=== PATIENT | female | born 1960 | race African-American/Black ===

== ENCOUNTER 2017-01-20 15:03 | Emergency (ER) | payer MEDICAID ==
[~2017-01-20] VITALS: Ht 167.6 cm; Wt 109.8 kg
[~2017-01-20 15:03] MED LIST: ACETAMINOPHEN-1 EAC1 PO; ALBUTEROL SULF8.5 GM INH; AMBIEN10 MG PO; AZITHROMYCIN250 MG PO; BENAZEPRIL HCL10 MG PO; CIPROFLOXACIN500 M2 ORAL; DEBROX15 M1 LEFT EAR; METOPROLOL SUCC25 MG PO; METRONIDAZOLE500 MG ORAL; NITROGLYCERIN0.4 MG SL; TRAMADOL HCL50 MG ORAL; VALIUM10 MG PO; VALIUM5 MG PO; ZANTAC150 MG PO
[2017-01-20] MEDS ORDERED: Albuterol ud Inhalation HHN ONE (15:30)
[2017-01-20] MEDS ORDERED: Ipratropium 0.02% Inh Soln 2.5ml UD HHN ONE (15:30)
[2017-01-20 15:34] VITALS: BP 109/74
[2017-01-20] MEDS ORDERED: ZITHROMAX250 MG ORAL (16:27)
[2017-01-20] MEDS ORDERED: PREDNISONE20 MG ORAL (16:27)
[2017-01-20] MEDS ORDERED: IBUPROFEN600 MG ORAL (16:27)
[2017-01-20 16:29] VITALS: BP 109/74
--- NOTE | 2017-01-20 19:20 | Emergency Room Report ---
History of Present Illness General Chief Complaint: Sore Throat Source: Patient, Medical Record Present Illness HPI The patient is a 56-year-old female with a history of asthma presenting for sore throat, cough, and fevers for the past week. The patient states that she was seen at an urgent care yesterday and was given IM steroids which has not helped. She states that throat swab was not done. She states that she has a history of recurrent tonsillitis and this feels the same. Pain is described as a 10 out of 10 dull ache to the back of the throat and does not radiate. Pain worse with swallowing. She describes cough as dry. She denies any other symptoms including shortness of breath, chest pain, nausea, vomiting, abdominal pain, rash Allergies: Coded Allergies: ACETAMINOPHEN (Verified Allergy, Mild, nausea, 07/24/12) vomit HYDROCODONE BIT (Verified Allergy, Mild, nausea, 07/24/12) vomit Patient History Past Medical History: see triage record Pertinent Family History: none Last Menstrual Period: menopause Now: No : 3 Para: 1 Reviewed Nursing Documentation: PMH: Agreed, PSxH: Agreed Nursing Documentation-PMH Past Medical History: No History, Except For Hx Cardiac Problems: Yes - CAD Hx Hypertension: Yes Hx Pacemaker: No Hx Asthma: No - BRONCHITIS Hx COPD: No Hx Diabetes: Yes Hx Cancer: No Hx Gastrointestinal Problems: Yes - GERD Hx Dialysis: No Hx Neurological Problems: Yes - INSOMNIA Hx Cerebrovascular Accident: Yes Hx Seizures: No Review of Systems All Other Systems: negative except mentioned in HPI Physical Exam Vital Signs Date Time Temp Pulse Resp B/P Pulse Ox O2 Delivery O2 Flow Rate FiO2 01/20/17 15:07 97.9 116 16 109/74 96 Room Air Sp02 EP Interpretation: reviewed, normal General Appearance: no apparent distress, alert, GCS 15, non-toxic Head: normocephalic, atraumatic Eyes: bilateral eye PERRL, bilateral eye normal inspection ENT: hearing grossly normal, no angioedema, normal voice, TMs + canals normal, uvula midline, tonsillar swelling, pharyngeal erythema Neck: full range of motion, supple/symm/no masses Respiratory: decreased breath sounds - diffuse, wheezing - diffuse Cardiovascular #1: no edema, no murmur, no rub Musculoskeletal: back normal, gait/station normal, normal range of motion, non- tender Neurologic: alert, oriented x3, responsive, motor strength/tone normal, sensory intact, speech normal Psychiatric: judgement/insight normal, memory normal, mood/affect normal, no suicidal/homicidal ideation Skin: normal color, no rash, warm/dry, well hydrated Lymphatic: adenopathy - cervical Medical Decision Making PA Attestation Dr. Faulkner is my supervising physician. Patient management was discussed with my supervising physician Diagnostic Impression: Primary Impression: Pharyngitis, acute Qualified Codes: J02.9 - Acute pharyngitis, unspecified ER Course The patient is a 56-year-old female with a history of asthma presenting for sore throat, cough, and fevers Differential diagnosis include but not limited to pharyngitis, sinusitis, AOM, bronchitis, PNA, asthma exacerbation, among others Physical exam: Afebrile. No apparent distress HEENT exam: There is bilateral tonsillar edema, erythema. Uvula midline. Moist mucous membranes. There is bilateral cervical lymphadenopathy. Lungs: bilat decreased breath sounds and wheezing Skin is warm and dry. No rash The patient is given a breathing treatment in the emergency department and feels better. Lung sounds have improved The patient will be discharged home with a prescription for azithromycin and steroids and is given ER precautions. Patient will followup with primary care and will continue to use inhaler at home. Last Vital Signs Date Time Temp Pulse Resp B/P Pulse Ox O2 Delivery O2 Flow Rate FiO2 01/20/17 16:29 97.9 18 109/74 100 Room Air 01/20/17 16:04 112 Status: improved Disposition: HOME, SELF-CARE Condition: Improved Scripts Azithromycin* (ZITHROMAX*) 250 Mg Tablet 250 MG ORAL DAILY, #6 TAB 0 Refills Take two tables once daily for 1 day, then one tablet once daily for 4 days. Prov: TERZIAN,JORGE L P.A. 01/20/17 Prednisone* (PREDNISONE*) 20 Mg Tablet 40 MG ORAL DAILY, #10 TAB Prov: TERZIAN,JORGE L P.A. 01/20/17 Ibuprofen* (MOTRIN*) 600 Mg Tablet 600 MG ORAL Q8H Y for For Pain, #30 TAB 0 Refills Prov: TERZIAN,JORGE L P.A. 01/20/17 Patient Instructions: Pharyngitis Additional Instructions: I discussed my findings with the patient. All questions and concerns have been answered. Treatment and medication compliance have been addressed. I advised the patient that they need to follow up with PMD in 3-5 days. Return to ED if pain remains or worsens, cough worsens or remains, you notice blood in your sputum, you notice wheezing, you experience a fever, or if needed for any reason. Patient verbalized understanding of discharge instructions. JORGE L SPENCER Jan 20, 2017 19:20
== END 2017-01-20 16:29 | disposition home or self-care (01) ==
LOC: EMR 15:28
DX: J02.9 Acute pharyngitis, unspecified (principal); R05 Cough; Z88.8 Allergy status to other drugs, medicaments and biological substances; I25.10 Atherosclerotic heart disease of native coronary artery without angina pectoris; I10 Essential (primary) hypertension; E11.9 Type 2 diabetes mellitus without complications; K21.9 Gastro-esophageal reflux disease without esophagitis; Z86.73 Personal history of transient ischemic attack (TIA), and cerebral infarction without residual deficits
CPT/HCPCS: 94640; 99284

== ENCOUNTER 2017-01-31 10:12 | Emergency (ER) | payer MEDICAID ==
[~2017-01-31] VITALS: Ht 167.6 cm; Wt 111.1 kg
[~2017-01-31 10:12] MED LIST changes: +IBUPROFEN600 MG ORAL; +PREDNISONE20 MG ORAL; +ZITHROMAX250 MG ORAL
[2017-01-31 10:29] VITALS: BP 156/99
[2017-01-31 10:59] LABS: APPEARANCE,URINE SLIGHTLY CLOUDY; KETONES,URINE NEGATIVE (NEGATIVE); LEUKOCYTE ESTERASE ,URINE 2+ (NEGATIVE); NITRITE,URINE NEGATIVE (NEGATIVE); PH,URINE 6.5 (4.5-8.0); PROTEIN,URINE NEGATIVE (NEGATIVE); UROBILINOGEN,URINE NORMAL MG/DL (0.0-1.0)
[2017-01-31 11:05] LABS: BASOPHILS % (AUTO) 1.2 % (0.0-2.0); EOSINOPHILS % (AUTO) 2.8 % (0.0-3.0); LYMPHOCYTES % (AUTO) 34.5 % (20.0-45.0); MEAN CORPUSCULAR HEMOGLOBIN 26.9 PG (27.0-31.0); MEAN CORPUSCULAR HGB CONC 32.9 G/DL (32.0-36.0); MEAN CORPUSCULAR VOLUME 82 FL (80-99); MEAN PLATELET VOLUME 5.8 FL (6.5-10.1); MONOCYTES % (AUTO) 9.9 % (1.0-10.0); NEUTROPHILS % (AUTO) 51.6 % (45.0-75.0); PLATELET COUNT 256 K/UL (150-450); RED CELL DISTRIBUTION WIDTH 15.3 % (11.6-14.8); WHITE BLOOD COUNT 8.4 K/UL (4.8-10.8)
[2017-01-31 11:13] LABS: BACTERIA,URINE FEW /HPF; RBC,URINE 0-2 /HPF (0 - 2); SQUAMOUS EPITHELIAL CELL,UR MODERATE /LPF (NONE/OCC)
[2017-01-31] MEDS ORDERED: Morphine Sulfate 4mg/ml Inj IVP ONE (11:15)
--- NOTE | 2017-01-31 11:18 | Emergency Room Report ---
History of Present Illness General Chief Complaint: Sore Throat Source: Patient Present Illness HPI 56-year-old female presents ED for evaluation of throat pain. States she's been having pain for the last several weeks. Was initially seen at a clinic and was given steroids. Was seen here the next day and was prescribed antibiotics for presumed pharyngitis. Patient states the symptoms have persisted and has seen one other clinic in the meanwhile wears she received a steroid injection and antibiotics. Patient states the pain has persisted. Patient has frequent history of throat infections. Pain is a 10 out of 10, sharp, nonradiating. Worse with swallowing. Denies fevers or chills. Denies cough. No other aggravating or relieving factors. Denies any other associated symptoms Allergies: Coded Allergies: ACETAMINOPHEN (Verified Allergy, Mild, nausea, 07/24/12) vomit HYDROCODONE BIT (Verified Allergy, Mild, nausea, 07/24/12) vomit Patient History Past Medical History: DM, HTN, GERD, CVA/TIA Past Surgical History: none Pertinent Family History: none Social History: Denies: alcohol use, drug use, smoking Last Menstrual Period: na Now: No Immunizations: UTD Reviewed Nursing Documentation: PMH: Agreed, PSxH: Agreed Nursing Documentation-PMH Past Medical History: No History, Except For Hx Cardiac Problems: Yes - CAD Hx Hypertension: Yes Hx Pacemaker: No Hx Asthma: No - BRONCHITIS Hx COPD: No Hx Diabetes: Yes Hx Cancer: No Hx Gastrointestinal Problems: Yes - GERD Hx Dialysis: No Hx Neurological Problems: Yes - INSOMNIA Hx Cerebrovascular Accident: Yes Hx Seizures: No Review of Systems All Other Systems: negative except mentioned in HPI Physical Exam Vital Signs Date Time Temp Pulse Resp B/P Pulse Ox O2 Delivery O2 Flow Rate FiO2 01/31/17 10:21 98.1 121 18 156/99 98 Room Air Sp02 EP Interpretation: reviewed, normal General Appearance: no apparent distress, alert, GCS 15, non-toxic, obese Head: normocephalic Eyes: bilateral eye PERRL, bilateral eye normal inspection ENT: normal ENT inspection, no angioedema, normal voice, TMs + canals normal, pharyngeal erythema Neck: other - tender submandibular LAD on right Respiratory: chest non-tender, lungs clear, normal breath sounds, speaking full sentences Cardiovascular #1: regular rate, rhythm, no edema Gastrointestinal: normal inspection Rectal: deferred Genitourinary: no CVA tenderness Musculoskeletal: normal inspection Neurologic: alert, oriented x3, responsive, motor strength/tone normal, sensory intact, speech normal Psychiatric: judgement/insight normal Skin: normal color Lymphatic: adenopathy - submandibular Medical Decision Making Diagnostic Impression: Primary Impression: Lymphadenopathy of right cervical region Additional Impression: Parotid gland pain ER Course Hospital Course 56-year-old female presents to ED with throat pain and neck pain. Treated multiple times recently for pharyngitis without improvement Differential diagnosis includes- pharyngitis, parotitis, retropharyngeal abscess Clinical course Patient placed on stretcher. After initial history and physical I ordered labs , IV fluids, pain medications and CT scan of neck Labs - no leukocytosis, electroltes ok, LFTs normal, UA unremarkable CT scan shows shows hypertrophy of both parotid glands Cervical lymphadenopathy Patient given IV clindamycin. Discussed findings with patient. Will prescribe antibiotics and pain medications but recommend followup with ENT I feel this is a highly complex case requiring extensive working including EKG/ Rhythm strip, Xray/CT/US, Blood/urine lab work, repeat exams while in ED, and administration of strong opiates/narcotics for pain control, admission to hospital or close patient follow up. Diagnosis - lymphadenopathy, parotid gland pain Stable and discharged to home with Rx Tylenol #3, Clindamycin. Followup with PMD. Return to ED if symptoms recur or worsen Labs Test 01/31/17 10:41 White Blood Count 8.4 K/UL (4.8-10.8) Red Blood Count 4.90 M/UL (4.20-5.40) Hemoglobin 13.2 G/DL (12.0-16.0) Hematocrit 40.1 % (37.0-47.0) Mean Corpuscular Volume 82 FL (80-99) Mean Corpuscular Hemoglobin 26.9 PG (27.0-31.0) Mean Corpuscular Hemoglobin Concent 32.9 G/DL (32.0-36.0) Red Cell Distribution Width 15.3 % (11.6-14.8) Platelet Count 256 K/UL (150-450) Mean Platelet Volume 5.8 FL (6.5-10.1) Neutrophils (%) (Auto) 51.6 % (45.0-75.0) Lymphocytes (%) (Auto) 34.5 % (20.0-45.0) Monocytes (%) (Auto) 9.9 % (1.0-10.0) Eosinophils (%) (Auto) 2.8 % (0.0-3.0) Basophils (%) (Auto) 1.2 % (0.0-2.0) Urine Color Pale yellow Urine Appearance Slightly cloudy Urine pH 6.5 (4.5-8.0) Urine Specific [place] 1.015 (1.005-1.035) Urine Protein Negative (NEGATIVE) Urine Glucose (UA) Negative (NEGATIVE) Urine Ketones Negative (NEGATIVE) Urine Occult Blood Negative (NEGATIVE) Urine Nitrite Negative (NEGATIVE) Urine Bilirubin Negative (NEGATIVE) Urine Urobilinogen Normal MG/DL (0.0-1.0) Urine Leukocyte Esterase 2+ (NEGATIVE) Urine RBC 0-2 /HPF (0 - 2) Urine WBC 2-4 /HPF (0 - 2) Urine Squamous Epithelial Cells Moderate /LPF (NONE/OCC) Urine Bacteria Few /HPF (NONE) Sodium Level 139 mEQ/L (135-145) Potassium Level 4.0 mEQ/L (3.4-4.9) Chloride Level 101 mEQ/L (98-107) Carbon Dioxide Level 24 mEQ/L (20-30) Anion Gap 14 (5-15) Blood Urea Nitrogen 14 mg/dL (7-23) Creatinine 0.9 mg/dL (0.5-0.9) Estimat Glomerular Filtration Rate > 60 mL/min (>60) Glucose Level 126 mg/dL (74-106) Calcium Level 10.4 mg/dL (8.6-10.2) Total Bilirubin 0.3 mg/dL (0.0-1.2) Aspartate Amino Transf (AST/SGOT) 16 U/L (5-40) Alanine Aminotransferase (ALT/SGPT) 28 U/L (3-33) Alkaline Phosphatase 89 U/L (35-104) Total Protein 7.5 g/dL (6.6-8.7) Albumin 4.1 g/dL (3.5-5.2) Globulin 3.4 g/dL Albumin/Globulin Ratio 1.2 (1.0-2.7) CT/MRI/US Diagnostic Results CT/MRI/US Diagnostic Results : Imaging Test Ordered: CT neck. Impression lymphadenopathy on right. fatty atrophy/replacement of L parotid. hypertrophy of R parotid. airways patient. epiglottis normal Last Vital Signs Date Time Temp Pulse Resp B/P Pulse Ox O2 Delivery O2 Flow Rate FiO2 01/31/17 10:29 98.1 18 156/99 98 Room Air 01/31/17 10:21 121 Status: improved Disposition: HOME, SELF-CARE Condition: Stable Scripts Clindamycin Hcl (CLINDAMYCIN HCL) 300 Mg Capsule 300 MG ORAL THREE TIMES A DAY, #21 CAP Prov: SHANNON WHYTE M.D. 01/31/17 Acetaminophen With Codeine (T#3) (TYLENOL #3 TAB*) Y Tab 1 TAB ORAL Q8H Y for For Pain, #20 TAB Prov: SHANNON WHYTE M.D. 01/31/17 Referrals: PATRICIA MARTINEZ,REFERRING (PCP) SHANNON WHYTE M.D. Jan 31, 2017 11:18
[2017-01-31 11:41] LABS: ALANINE AMINOTRANSFERASE 28 U/L (3-33); ALBUMIN/GLOBULIN RATIO 1.2 (1.0-2.7); ANION GAP 14 (5-15); ASPARTATE AMINO TRANSFERASE 16 U/L (5-40); CALCIUM 10.4 mg/dL (8.6-10.2); CARBON DIOXIDE 24 mEQ/L (20-30); CHLORIDE 101 mEQ/L (98-107); CREATININE 0.9 mg/dL (0.5-0.9); GLOMERULAR FILTRATION RATE > 60 mL/min (>60); HEMOLYSIS 1; SODIUM 139 mEQ/L (135-145); TOTAL PROTEIN 7.5 g/dL (6.6-8.7)
[2017-01-31 12:38] VITALS: BP 148/96
[2017-01-31] MEDS ORDERED: CLINDAMYCIN HC300 MG ORAL (14:05)
[2017-01-31] MEDS ORDERED: ACETAMINOPHEN-1 EAC1 ORAL (14:05)
[2017-01-31 14:19] VITALS: BP 145/96
[2017-01-31 14:20] VITALS: BP 145/96
--- NOTE | 2017-02-01 11:46 | Diagnostic Imaging Report ---
Indications: Neck pain and swelling, sore throat Technique: Continuous helical CT imaging of the neck from the base of the skull through the aortic arch was performed with automatic exposure control following intravenous administration of nonionic iodine contrast, on a Siemens sensation [address] scanner. Axial, coronal, and sagittal images were reconstructed at 3 mm slice thickness. CTDI volume(s): 8, 16, 21 mGy Total DLP: December 69 mGy-cm Findings: Comparison: None Visualized portions of brain: Unremarkable. Paranasal sinuses: Visualized portions clear. Nasopharynx: Unremarkable. Oral cavity: Images degraded by artifact from metallic dental fillings. Unobscured anatomy unremarkable.. Oropharynx: Unremarkable. Epiglottis: Unremarkable. False vocal cords: Unremarkable. True vocal cords: Unremarkable. Subglottic airway: Unremarkable. Prevertebral soft tissues: Unremarkable. Bilateral parapharyngeal soft tissues: Unremarkable. Lymph nodes: Prominent right-sided level II lymph nodes up to 2 cm diameter, homogeneously enhancing, remainder nonenlarged. Superficial soft tissues: Unremarkable. Parotid glands: Left atrophic and diffusely fatty; right hypertrophied without focal abnormality. Submandibular glands: Unremarkable. Thyroid gland: Unremarkable. Vascular structures: No significant abnormality identified. Skeletal structures: Multilevel disc space narrowing with marginal osteophyte formation in cervical spine with suggestion of mild spinal stenosis at C5-6.. Lung apices: Unremarkable. Upper mediastinum: Unremarkable. IMPRESSION: Mild right cervical adenopathy No other evidence of significant inflammatory pathology Atrophic left parotid gland Degenerative spondylosis This correlates with [facility] preliminary report. The CT scanner at [facility] is accredited by the [employer] and the scans are performed using protocols designed to limit radiation exposure to as low as reasonably achievable to attain images of sufficient resolution adequate for diagnostic evaluation.
== END 2017-01-31 14:23 | disposition home or self-care (01) ==
LOC: EMR 10:30
DX: R59.0 Localized enlarged lymph nodes (principal); K11.0 Atrophy of salivary gland
CPT/HCPCS: 36415; 70491; 80053; 81003; 85025; 96374; 96375; 99284; J2270; J7040; Q9967; S0077

== ENCOUNTER 2017-05-25 12:41 | Emergency (ER) | payer MEDICAID ==
[~2017-05-25] VITALS: Ht 170.2 cm; Wt 114.3 kg
[~2017-05-25 12:41] MED LIST changes: +ACETAMINOPHEN-1 EAC1 ORAL; +CLINDAMYCIN HC300 MG ORAL
[2017-05-25] MEDS ORDERED: LOSARTAN POTASS25 MG ORAL (13:18)
[2017-05-25] MEDS ORDERED: JANUVIA25 MG ORAL (13:18)
[2017-05-25] MEDS ORDERED: AMLODIPINE BESYL5 MG ORAL (13:18)
[2017-05-25] MEDS ORDERED: MONTELUKAST SOD10 MG ORAL (13:18)
[2017-05-25] MEDS ORDERED: Lidocaine 1% 10mg/ml/Epi 0.005mg/ml 30ml vial INJ ONE (13:30)
[2017-05-25] MEDS ORDERED: Bacitracin Oint UD TOPIC ONE (13:30)
[2017-05-25] MEDS ORDERED: IBUPROFEN600 MG ORAL (14:11)
[2017-05-25] MEDS ORDERED: CEPHALEXIN500 MG ORAL (14:11)
[2017-05-25] MEDS ORDERED: LEVAQUIN500 MG ORAL (14:11)
[2017-05-25 14:20] VITALS: BP 115/81
[2017-05-25] MEDS ORDERED: PROAIR HFA8.5 GM INH (14:22)
--- NOTE | 2017-05-25 15:40 | Emergency Room Report ---
History of Present Illness General Chief Complaint: Lower Extremity Injury Source: Patient (JORGE L SPENCER) Present Illness HPI The patient is a 57-year-old female presenting for right foot pain. The patient states that she has a history of diabetes. She was walking barefooted and states that she stepped on a piece of broken glass approximately 1.5 weeks ago. She did not seek any medical attention. Pain has continued and is a 9/10 dull ache to the right heel. Worse with walking. She denies any radiating pain. She denies any numbness or tingling. She denies any fever chills, rash (JORGE L SPENCER P.AWillow) Allergies: Coded Allergies: ACETAMINOPHEN (Verified Allergy, Mild, nausea, 07/24/12) vomit HYDROCODONE BIT (Verified Allergy, Mild, nausea, 07/24/12) vomit Patient History Past Medical History: see triage record, DM Pertinent Family History: none Last Menstrual Period: Menopausal Reviewed Nursing Documentation: PMH: Agreed, PSxH: Agreed (JORGE L SPENCER.Kaila) Nursing Documentation-PMH Hx Cardiac Problems: Yes - CAD Hx Hypertension: Yes Hx Pacemaker: No Hx Asthma: No - BRONCHITIS Hx Diabetes: Yes Hx Cancer: No Hx Gastrointestinal Problems: Yes - GERD Hx Dialysis: No Hx Neurological Problems: Yes - INSOMNIA Hx Cerebrovascular Accident: Yes Hx Seizures: No (JORGE L SPENCER P.A.) Review of Systems All Other Systems: negative except mentioned in HPI (JORGE L SPENCER P.AWillow) Physical Exam Vital Signs Date Time Temp Pulse Resp B/P (MAP) Pulse Ox O2 Delivery O2 Flow Rate FiO2 05/25/17 12:54 97.5 90 18 113/80 99 Room Air Sp02 EP Interpretation: reviewed, normal General Appearance: no apparent distress, alert, GCS 15, non-toxic Head: normocephalic, atraumatic Eyes: bilateral eye normal inspection, bilateral eye PERRL Musculoskeletal: normal range of motion, tender - TTP over the R plantar foot heel Neurologic: alert, oriented x3, responsive, motor strength/tone normal, sensory intact, speech normal Skin: wd healing/no infection noted, other - R foot heel has < 1cm laceration with palpable FB (JORGE L SPENCER P.AWillow) Procedures Additional Procedure Procedure Narrative Right foot: The wound on the plantar surface was cleaned with Betadine. Sterile drapes applied. 2 mL 1% lidocaine with epinephrine used for local anesthesia. The puncture wound was reopened and a small piece of glass was removed in one piece. The wound again was cleaned with normal saline and Betadine. Bacitracin is applied with sterile dressing Patient tolerated well (JORGE L SPENCER.AWillow) Medical Decision Making PA Attestation Dr. Kelsey is my supervising physician. Patient management was discussed with my supervising physician (JORGE L SPENCER) Diagnostic Impression: Primary Impression: Puncture wound of foot with foreign body Qualified Codes: S91.341A - Puncture wound with foreign body, right foot, initial encounter ER Course The patient is a 57-year-old female with a history of diabetes presenting for right foot puncture and possible foreign body Differential diagnoses considered but not limited to: Puncture wound, cellulitis , wound infection, laceration, foreign body Physical exam: Afebrile. No apparent distress There is a less than 1 cm puncture to the plantar surface of the heel of the right foot. No active bleeding. There is a palpable foreign body. No surrounding erythema Extremities the right foot reveals an opaque object just deep to the skin Right foot: The wound on the plantar surface was cleaned with Betadine. Sterile drapes applied. 2 mL 1% lidocaine with epinephrine used for local anesthesia. The puncture wound was reopened and a small piece of glass was removed in one piece. The wound again was cleaned with normal saline and Betadine. Bacitracin is applied with sterile dressing Patient tolerated well The patient is placed on antibiotics and will be discharged home. She will follow up with primary doctor. ER precautions are given (JORGE L SPENCER P.AWillow) ER Course I agree with PAs interpretation of XR results Electronically signed by Codie Kelsey MD (Codie Kelsey M.D.) Other X-Ray Diagnostic Results Other X-Ray Diagnostic Results : X-Ray ordered: R foot # of Views/Limited Vs Complete: 3 View Indication: Pain EP Interpretation: Yes Interpretation: no dislocation, no soft tissue swelling, no fractures, other - + FB Impression: Other - Foreign body Electronically Signed by: JANE Giordano Scribe Text I have reviewed the xray with my supervising physician and interpretation is that there are no fractures, dislocations or soft tissue swelling. There is a small foreign body at the plantar surface (JORGE L SPENCER P.Kaila) Last Vital Signs Date Time Temp Pulse Resp B/P (MAP) Pulse Ox O2 Delivery O2 Flow Rate FiO2 05/25/17 14:20 97.5 80 15 115/81 98 Room Air Status: improved (JORGE L SPENCER P.A.) Disposition: HOME, SELF-CARE Condition: Improved Scripts Albuterol Sulfate* (PROAIR HFA*) 8.5 Gm Hfa.aer.ad 2 PUFFS INH Q6H, #8.5 GM 0 Refills Prov: JORGE L SPENCER P.A. 05/25/17 Ibuprofen* (MOTRIN*) 600 Mg Tablet 600 MG ORAL Q8H Y for For Pain, #30 TAB 0 Refills Prov: TERZIANJORGE L P.A. 05/25/17 Cephalexin* (KEFLEX*) 500 Mg Capsule 500 MG ORAL EVERY 12 HOURS, #14 CAP 0 Refills Prov: TERZIANSTUARTY P.A. 05/25/17 Levofloxacin* (LEVAQUIN*) 500 Mg Tablet 500 MG ORAL DAILY, #5 TAB Prov: TERZIANJORGE L P.A. 05/25/17 Patient Instructions: Diabetes and Foot Care, Sliver Removal, Care After Additional Instructions: I discussed my findings with the patient. All questions and concerns have been answered. Treatment and medication compliance have been addressed. I advised the patient that they need to follow up with PMD in 3-5 days. Return to ED if symptoms worsen, new symptoms arise such as fever, redness, swelling, or if needed for any reason. Patient verbalized understanding of discharge instructions. JORGE L SPENCER May 25, 2017 15:40 Codie Kelsey M.D. May 25, 2017 21:40
--- NOTE | 2017-05-25 16:20 | Diagnostic Imaging Report ---
Indication: PAIN Technique: 3 views right foot Comparison: none Findings: No acute fractures. No dislocations. There is mild hallux valgus and metatarsus adductus. There is hammertoe deformity of the second through fifth digits. There is a small plantar spur Impression: No acute bony trauma
== END 2017-05-25 14:20 | disposition home or self-care (01) ==
LOC: EMR 13:10
DX: S91.341A Puncture wound with foreign body, right foot, initial encounter (principal); W25.XXXA Contact with sharp glass, initial encounter; Y93.9 Activity, unspecified; Y92.9 Unspecified place or not applicable; Z88.6 Allergy status to analgesic agent; I25.10 Atherosclerotic heart disease of native coronary artery without angina pectoris; I10 Essential (primary) hypertension; E11.9 Type 2 diabetes mellitus without complications; K21.9 Gastro-esophageal reflux disease without esophagitis; Z86.73 Personal history of transient ischemic attack (TIA), and cerebral infarction without residual deficits
CPT/HCPCS: 10121; 99284

== ENCOUNTER 2018-02-22 15:42 | Emergency (ER) | payer MEDICAID ==
[~2018-02-22] VITALS: Ht 170.2 cm; Wt 104.3 kg
[~2018-02-22 15:42] MED LIST changes: +AMLODIPINE BESYL5 MG ORAL; +CEPHALEXIN500 MG ORAL; +JANUVIA25 MG ORAL; +LEVAQUIN500 MG ORAL; +LOSARTAN POTASS25 MG ORAL; +MONTELUKAST SOD10 MG ORAL; +PROAIR HFA8.5 GM INH
[2018-02-22 16:00] VITALS: BP 148/82
--- NOTE | 2018-02-22 16:03 | Emergency Room Report ---
History of Present Illness General Chief Complaint: Medication Refill Source: Patient, Medical Record Present Illness HPI 58-year-old female presents emergency department requesting medication refill for her sleeping medication. Patient states that she is diagnosed with insomnia /sleep apnea and that her regular prescribing physician is out of town. Patient states that she does have a sleep study follow-up appointment on the and is requesting temporary refill until then. Patient states she has been out of her medication for 4 nights and has been unable to sleep causing significant daytime drowsiness. She denies fevers, pain, delusions, psychosis, hallucinations. Patient denies SI or HI. Allergies: Coded Allergies: ACETAMINOPHEN (Verified Allergy, Mild, nausea, 07/24/12) vomit HYDROCODONE BIT (Verified Allergy, Mild, nausea, 07/24/12) vomit Patient History Past Medical History: see triage record, other - insomnia/ sleep apnea Past Surgical History: none Pertinent Family History: none Last Menstrual Period: 20 yrs ago Reviewed Nursing Documentation: PMH: Agreed; PSxH: Agreed Nursing Documentation-PMH Past Medical History: No History, Except For Hx Cardiac Problems: Yes - CAD Hx Hypertension: Yes Hx Pacemaker: No Hx Asthma: No - BRONCHITIS Hx Diabetes: Yes Hx Cancer: No Hx Gastrointestinal Problems: Yes - GERD Hx Dialysis: No Hx Neurological Problems: Yes - INSOMNIA Hx Cerebrovascular Accident: Yes Hx Seizures: No Review of Systems All Other Systems: negative except mentioned in HPI Physical Exam Vital Signs Date Time Temp Pulse Resp B/P (MAP) Pulse Ox O2 Delivery O2 Flow Rate FiO2 02/22/18 15:46 97.5 88 18 148/82 100 Room Air 97.5 Sp02 EP Interpretation: reviewed, normal General Appearance: alert, GCS 15, non-toxic, mild distress - obvious dark circles/bags under the eyes. Head: normocephalic, atraumatic Eyes: bilateral eye normal inspection, bilateral eye PERRL ENT: hearing grossly normal, normal voice Neck: full range of motion Respiratory: lungs clear, normal breath sounds, speaking full sentences Cardiovascular #1: regular rate, rhythm Musculoskeletal: back normal, gait/station normal, normal range of motion Neurologic: alert, oriented x3, responsive, motor strength/tone normal, sensory intact, speech normal, grossly normal Psychiatric: normal inspection, judgement/insight normal, memory normal, mood/ affect normal, no suicidal/homicidal ideation, no delusions Skin: normal color, no rash, warm/dry, well hydrated Medical Decision Making PA Attestation Dr. Kelsey is my supervising Physician whom patient management has been discussed with. Diagnostic Impression: Primary Impression: Encounter for medication refill ER Course Pt. presents to the ED c/o running out of her medication and her soonest appt. with her pcp is december 12. pt takes [ ] Ddx considered but are not limited to: drug seeking, OD, sleep apnea/insomnia Vital signs: are WNL, pt. is afebrile H&PE are most consistent with need for medication refill. - Pt. well groomed, obvious dark circles/bags under the eyes. ORDERS: none required at this time, the diagnosis is clinical ED INTERVENTIONS: None required at this time. I discussed with this patient that it is ED policy to encourage and ensure the patient's maintain only one prescribing physician for controlled substances and that we usually do not provide refills. I did however check this patient's cures report and I saw that she does receive the same quantity of this medication at the same time every month by the same prescribing provider. Because this patient. In the last 12 months this patient has not filled multiple prescriptions in the same month and I therefore believe that this patient can safely be prescribed a temporary refill however I did explain to her that this is not something to normally expect and any future visits/other ED providers. DISCHARGE: At this time pt. is stable for d/c to home. Will provide printed patient care instructions, and any necessary prescriptions. Care plan and follow up instructions have been discussed with the patient prior to discharge. Last Vital Signs Date Time Temp Pulse Resp B/P (MAP) Pulse Ox O2 Delivery O2 Flow Rate FiO2 02/22/18 15:46 97.5 88 18 148/82 100 Room Air 97.5 Disposition: HOME, SELF-CARE Condition: Stable Scripts Zolpidem Tartrate* (ZOLPIDEM TARTRATE*) 10 Mg Tablet 10 MG ORAL BEDTIME PRN for Insomnia, #15 TAB 0 Refills Prov: Jocelin Goff 02/22/18 Patient Instructions: Medicine Refill at the Emergency Department Additional Instructions: Take medications as directed. Follow up with a Primary Care Provider, or [facility] in 3-5 days, * * Return sooner to ED if new symptoms occur, or current symptoms become worse. Take only Before bedtime Do not drink alcohol, drive, or operate heavy machinery while taking zolpidem as this may cause drowsiness. - Please note that this Emergency Department Report was dictated using [employer] gliding instructor technology software, occasionally this can lead to erroneous entry secondary to interpretation by the dictation equipment. Jocelin Goff Feb 22, 2018 16:03
[2018-02-22] MEDS ORDERED: ZOLPIDEM TARTRA10 MG ORAL (16:04)
[2018-02-22 16:10] VITALS: BP 148/82
== END 2018-02-22 16:10 | disposition home or self-care (01) ==
LOC: EMR 16:10
DX: G47.00 Insomnia, unspecified (principal); Z76.0 Encounter for issue of repeat prescription; I25.10 Atherosclerotic heart disease of native coronary artery without angina pectoris; I10 Essential (primary) hypertension; E11.9 Type 2 diabetes mellitus without complications; K21.9 Gastro-esophageal reflux disease without esophagitis; Z86.73 Personal history of transient ischemic attack (TIA), and cerebral infarction without residual deficits; Z88.6 Allergy status to analgesic agent
CPT/HCPCS: 99283

== ENCOUNTER 2018-04-22 15:53 | Emergency (ER) | payer MEDICAID ==
[~2018-04-22] VITALS: Ht 170.2 cm; Wt 117.9 kg
[~2018-04-22 15:53] MED LIST changes: +ZOLPIDEM TARTRA10 MG ORAL
[2018-04-22 16:21] VITALS: BP 131/73
--- NOTE | 2018-04-22 16:26 | Emergency Room Report ---
History of Present Illness General Chief Complaint: Back Pain-No Injury Source: Patient, Medical Record Present Illness HPI 58-year-old female patient presents ER complaining of hip pain status post fall a few days ago. Reports that she was in her room when she tripped and fell onto her hip onto the ground. states she fell onto her right hip, complains of history of left hip pain from previous falls in the past. Denies hitting her head or loss consciousness. Denies vision changes only. Denies dizziness or syncopal episode. Reports history of falling twice more for the past month, states that she fell on her hip during that time, denies hitting her head or loss of consciousness. Reports was previously seen her doctor since that time. Denies having any imaging done. Reports has not been homeopathic medication, states has not been taking NSAIDs because they "don't work". Denies fever, chest pain, shortness of breath. Reports history of diabetes. Denies dysuria, hematuria. patient ambulated into the ER independently. reports history of arthritis, not taking any arthritis medication currently. Denies back pain contrary to triage report. denies bowel or bladder incontinence. Allergies: Coded Allergies: ACETAMINOPHEN (Verified Allergy, Mild, nausea, 04/22/18) vomit HYDROCODONE BIT (Verified Allergy, Mild, nausea, 04/22/18) vomit Patient History Past Medical History: see triage record Now: No Reviewed Nursing Documentation: PMH: Agreed; PSxH: Agreed Nursing Documentation-PMH Past Medical History: No History, Except For Hx Cardiac Problems: Yes - CAD Hx Hypertension: Yes Hx Pacemaker: No Hx Asthma: No - BRONCHITIS Hx Diabetes: Yes Hx Cancer: No Hx Gastrointestinal Problems: Yes - GERD Hx Dialysis: No Hx Neurological Problems: Yes - INSOMNIA Hx Cerebrovascular Accident: Yes Hx Seizures: No Review of Systems All Other Systems: negative except mentioned in HPI Physical Exam Vital Signs Date Time Temp Pulse Resp B/P (MAP) Pulse Ox O2 Delivery O2 Flow Rate FiO2 04/22/18 16:01 97.8 97 16 131/73 96 Room Air 97.9 Sp02 EP Interpretation: reviewed, normal General Appearance: well appearing, no apparent distress, alert, GCS 15, non- toxic Head: normocephalic, atraumatic Eyes: bilateral eye normal inspection, bilateral eye PERRL ENT: hearing grossly normal, normal pharynx, no angioedema, normal voice, uvula midline, moist mucus membranes Neck: full range of motion Respiratory: lungs clear, normal breath sounds, no rhonchi, no respiratory distress, no accessory muscle use, no wheezing, speaking full sentences Cardiovascular #1: regular rate, rhythm, no edema Gastrointestinal: non tender, soft, no mass, non-distended, no guarding, no rebound Genitourinary: no CVA tenderness Musculoskeletal: back normal - no spinous process tenderness or bony depression , digits/nails normal, gait/station normal, normal range of motion, no calf tenderness, pelvis stable, Louise's Sign negative, other - able to ambulate , tender - right hip Neurologic: alert, oriented x3, responsive, motor strength/tone normal, SLR negative, sensory intact Skin: no rash Medical Decision Making PA Attestation Dr. Aggarwal is my supervising Physician whom patient management has been discussed with. Diagnostic Impression: Primary Impression: Contusion, hip ER Course Pt. presents to the ED c/o right hip pain. Ddx considered but are not limited to fracture, sprain, strain, contusion, dislocation. No erythema, no warmth to touch, no fever, nontoxic appearing, low suspicion for septic joint. ordered x-ray of pelvis is patient complains of right hip pain and history of left hip pain. Vital signs: are WNL, pt. is afebrile Ordered X-ray and pain medication. ER COURSE Provided with pain medication. CURES reviewed. straight leg raise negative, the spinous process tenderness or bony depression, does not need imaging of the lumbar spine at this time. While waiting for x-ray results, patient observed ambulating in ER without difficulty, states pain symptoms have improved since arrival to ER. States that she needs to be discharged soon to go with her mother to grape picker her nephew An X-ray of the pelvis shows no acute fracture per the preliminary reading. Discuss results with the patient. Provided patient with copy of results. Instructed patient to followup with PCP and discuss results of report with patient, discuss need for further treatment and referral. Informed patient likely contusion causing pain symptoms. Patient declined crutches. Patient instructed on RICE method: rest, ice, compression, elevation. Patient instructed on rest, ice and heat. Patient instructed to be WBAT Contact information for orthopedic urgent care provided, follow-up with urgent care if unable to followup with primary care provider and get referral to customer contact specialist. Followup with primary care provider. Discuss referral to ortho/pain management/ PT as needed. Discuss further imaging with MRI/CT as needed. reports pain symptoms improved while in the ER. Advised patient on taking ibuprofen, patient states that does not work for her. patient instructed to follow with her regular care provider discuss further treatment and referral to pain management as needed. Discussed pain medication. Discuss referral to rheumatology for arthritis symptoms and medications. DISCHARGE: -Rx provided for Ultram, patient reports no history of kidney disease or seizures. At this time pt. is stable for d/c to home. Patient is resting comfortably, in no acute distress, nontoxic appearing, talking without difficulty. Will provide printed patient care instructions, and any necessary prescriptions. Patient instructed to follow with primary care provider in 3 - 5 days and to request further follow-up as needed. Care plan and follow up instructions have been discussed with the patient prior to discharge. Take medications as directed. Patient questions asked and answered. Patient reports understanding and agreement to treatment plan. ER precautions given, patient instructed to return to ER immediately for any new or worsening of symptoms. - Please note that this Emergency Department Report was dictated using [employer] supervisor technology software, occasionally this can lead to erroneous entry secondary to interpretation by the dictation equipment. Other X-Ray Diagnostic Results Other X-Ray Diagnostic Results : X-Ray ordered: pelvic x-ray # of Views/Limited Vs Complete: 1 View Indication: Pain EP Interpretation: Yes PA Xray: Interpretation reviewed, by supervising MD, and agrees with findings. Interpretation: no dislocation, no soft tissue swelling, no fractures Impression: No acute disease PA Scribe Text Buck Palm PA-Barney Last Vital Signs Date Time Temp Pulse Resp B/P (MAP) Pulse Ox O2 Delivery O2 Flow Rate FiO2 04/22/18 16:21 97.9 78 16 131/73 96 Room Air 97.9 Status: improved Disposition: HOME, SELF-CARE Condition: Stable Scripts Tramadol Hcl* (ULTRAM*) 50 Mg Tablet 50 MG ORAL Q6H PRN for For Pain, #12 TAB 0 Refills Prov: Enrique Palm 04/22/18 Referrals: NON PHYSICIAN (PCP) Patient Instructions: Hip Pain Additional Instructions: Patient instructed to follow up with primary care provider 3-5 and discuss further referral and imaging at that time. Discuss referral to sawmill moulder operator for arthritis evaluation. Patient instructed on rest, ice and heat. Take medications as directed. Patient questions asked and answered. ER precautions given, patient instructed to return to ER immediately for any new or worsening of symptoms. Enrique Palm Apr 22, 2018 16:26
[2018-04-22] MEDS ORDERED: Ketorolac 30mg Inj IM ONE (16:30)
[2018-04-22] MEDS ORDERED: IBUPROFEN600 MG ORAL (17:59)
--- NOTE | 2018-04-22 18:01 | Diagnostic Imaging Report ---
EXAM: XR Pelvis, 1 or 2 Views CLINICAL HISTORY: PAIN TECHNIQUE: Frontal view of the pelvis. COMPARISON: No relevant prior studies available. FINDINGS: Bones/joints: Unremarkable. No acute fracture. No dislocation. Soft tissues: Unremarkable. IMPRESSION: Normal pelvis x-ray.
[2018-04-22] MEDS ORDERED: TRAMADOL HCL50 MG ORAL (18:11)
[2018-04-22 18:15] VITALS: BP 124/88
== END 2018-04-22 18:17 | disposition home or self-care (01) ==
LOC: EMR 16:17
DX: S70.01XA Contusion of right hip, initial encounter (principal); M25.551 Pain in right hip; W01.0XXA Fall on same level from slipping, tripping and stumbling without subsequent striking against object, initial encounter; Z91.81 History of falling; I10 Essential (primary) hypertension; I25.10 Atherosclerotic heart disease of native coronary artery without angina pectoris; E11.9 Type 2 diabetes mellitus without complications; Y93.9 Activity, unspecified; Y92.9 Unspecified place or not applicable; Y99.9 Unspecified external cause status; Z88.6 Allergy status to analgesic agent; Z86.73 Personal history of transient ischemic attack (TIA), and cerebral infarction without residual deficits
CPT/HCPCS: 72170; 96372; 99283; J1885

== ENCOUNTER 2018-05-27 12:39 | Emergency (ER) | payer MEDICAID ==
[~2018-05-27] VITALS: Ht 170.2 cm; Wt 120.2 kg
[2018-05-27 12:45] VITALS: BP 123/85
[2018-05-27] MEDS ORDERED: AMBIEN10 MG ORAL (12:59)
--- NOTE | 2018-05-27 13:00 | Emergency Room Report ---
History of Present Illness General Chief Complaint: Medication Refill Source: Medical Record Present Illness HPI 58-year-old female patient presents ER requesting refill of Ambien medication. Reports been taking medication for several years, states she takes 10 mg once a day. Reports she has been suffering from insomnia since she was younger. Reports that she went to her primary care doctor but her doctor did not have sutures a counselor she was told to come to the ER to get a prescription refill. Patient is currently waiting for a new doctor to establish care. Denies side effects on medication. Denies fever, chest pain, shortness of breath. Denies thoughts of hurting herself or others. states is waiting on referral to a sleep study. Allergies: Coded Allergies: ACETAMINOPHEN (Verified Allergy, Mild, nausea, 04/22/18) vomit HYDROCODONE BIT (Verified Allergy, Mild, nausea, 04/22/18) vomit Patient History Past Medical History: see triage record Last Menstrual Period: 30 yrs ago Reviewed Nursing Documentation: PMH: Agreed; PSxH: Agreed Nursing Documentation-PMH Past Medical History: No History, Except For Hx Cardiac Problems: Yes - CAD Hx Hypertension: Yes Hx Pacemaker: No Hx Asthma: No - BRONCHITIS Hx Diabetes: Yes Hx Cancer: No Hx Gastrointestinal Problems: Yes - GERD Hx Dialysis: No Hx Neurological Problems: No - INSOMNIA Hx Cerebrovascular Accident: Yes Hx Seizures: No Review of Systems All Other Systems: negative except mentioned in HPI Physical Exam Vital Signs Date Time Temp Pulse Resp B/P (MAP) Pulse Ox O2 Delivery O2 Flow Rate FiO2 05/27/18 12:43 98.0 88 19 123/85 95 Room Air 98.1 Sp02 EP Interpretation: reviewed, normal General Appearance: well appearing, no apparent distress, alert, GCS 15, non- toxic Head: normocephalic, atraumatic Eyes: bilateral eye normal inspection, bilateral eye PERRL ENT: hearing grossly normal, normal pharynx, no angioedema, normal voice, uvula midline, moist mucus membranes Neck: full range of motion Respiratory: lungs clear, normal breath sounds, no rhonchi, no respiratory distress, no accessory muscle use, no wheezing, speaking full sentences Cardiovascular #1: regular rate, rhythm, no edema Musculoskeletal: back normal, digits/nails normal, gait/station normal, normal range of motion, non-tender Neurologic: alert, oriented x3, responsive, motor strength/tone normal, sensory intact Psychiatric: mood/affect normal Skin: no rash Medical Decision Making PA Attestation Dr. Phipps is my supervising Physician whom patient management has been discussed with. Diagnostic Impression: Primary Impression: Encounter for medication refill ER Course Pt. presents to the ED requesting prescription refill. Multiple differentials were considered. Vital signs: are WNL, pt. is afebrile ORDERS: PE benign, patient denies fever, chest pain, shortness of breath, side effects of medication. Informed patient that ER does not normally provide refills of medication, needs follow-up with primary care provider for prescription refill. CURES reviewed, 30 day supply last provided on 04/27/2018. Consult with Dr. Phipps, will provide 1 week prescription refill for patient. Contact primary care provider for further treatment. Establish care with new provider if old provider unable to raul prescription. followup with sleep study. Informed patient ER cannot provide refills in the future; followup, management and prescription of long-term medications must be performed by primary care provider. DISCHARGE: Rx provided for Ambien for 7 days At this time pt is stable for d/c to home. Patient is resting comfortably, in no acute distress, nontoxic appearing, talking without difficulty. Patient to take medications as instructed Will provide with patient care instructions and any necessary prescriptions. Care plan and follow-up instructions provided. Patient instructed to follow-up with primary care provider in 3 - 5 days. Patient questions asked and answered. Patient reports understanding and agreement to treatment plan. ER precautions given. Patient instructed to return to ER immediately for any new or worsening of symptoms including but not limited to increasing SOB, persistent fever. - Please note that this Emergency Department Report was dictated using [employer]IC[employer]ipal security architect technology software, occasionally this can lead to erroneous entry secondary to interpretation by the dictation equipment. Last Vital Signs Date Time Temp Pulse Resp B/P (MAP) Pulse Ox O2 Delivery O2 Flow Rate FiO2 05/27/18 12:43 98.0 88 19 123/85 95 Room Air 98.1 Disposition: HOME, SELF-CARE Condition: Stable Scripts Zolpidem Tartrate* (AMBIEN*) 10 Mg Tablet 10 MG ORAL BEDTIME PRN for Insomnia, #7 TAB 0 Refills Prov: Enrique Palm 05/27/18 Patient Instructions: Medicine Refill at the Emergency Department Additional Instructions: Followup with primary care provider in 3 -5 days. Take medications as directed. Patient questions asked and answered. ER precautions given, patient instructed to return to ER immediately for any new or worsening of symptoms. Enrique Palm May 27, 2018 13:00
[2018-05-27 13:08] VITALS: BP 123/85
== END 2018-05-27 13:00 | disposition home or self-care (01) ==
LOC: EMR 12:58
DX: G47.00 Insomnia, unspecified (principal); Z76.0 Encounter for issue of repeat prescription; I25.10 Atherosclerotic heart disease of native coronary artery without angina pectoris; I10 Essential (primary) hypertension; E11.9 Type 2 diabetes mellitus without complications; K21.9 Gastro-esophageal reflux disease without esophagitis; Z86.73 Personal history of transient ischemic attack (TIA), and cerebral infarction without residual deficits; Z88.6 Allergy status to analgesic agent; Z88.5 Allergy status to narcotic agent
CPT/HCPCS: 99282

== ENCOUNTER 2018-07-28 13:21 | Emergency (ER) | payer MEDICAID ==
[~2018-07-28] VITALS: Ht 170.2 cm; Wt 120.2 kg
[~2018-07-28 13:21] MED LIST changes: +AMBIEN10 MG ORAL
[2018-07-28] MEDS ORDERED: Meclizine 25mg tab ORAL ONE (14:00)
--- NOTE | 2018-07-28 14:08 | Emergency Room Report ---
History of Present Illness General Chief Complaint: Earache Source: Patient Present Illness HPI 58-year-old female patient presents the ER complaining of left earache and vertigo for the past 4 days. Patient reports room is spinning, denies feeling of herself moving. Reports worse with movement of her head from lying down to standing. Denies history of syncopal episode. Reports tinnitus. Denies vision changes. Reports nausea, denies vomiting. Denies fever, chest pain, shortness of breath. Reports history of cerumen impaction bilateral ears, states she uses hydrogen peroxide at home for relief of symptoms. States was at her mother 's doctor's appointment when the doctor told her to come to the ER. Allergies: Coded Allergies: ACETAMINOPHEN (Verified Allergy, Mild, nausea, 04/22/18) vomit HYDROCODONE BIT (Verified Allergy, Mild, nausea, 04/22/18) vomit Patient History Past Medical History: see triage record Reviewed Nursing Documentation: PMH: Agreed; PSxH: Agreed Nursing Documentation-PMH Past Medical History: No History, Except For Hx Cardiac Problems: Yes - CAD Hx Hypertension: Yes Hx Pacemaker: No Hx Asthma: No - BRONCHITIS Hx Diabetes: Yes Hx Cancer: No Hx Gastrointestinal Problems: Yes - GERD Hx Dialysis: No Hx Neurological Problems: No - INSOMNIA Hx Cerebrovascular Accident: Yes Hx Seizures: No Review of Systems All Other Systems: negative except mentioned in HPI Physical Exam Vital Signs Date Time Temp Pulse Resp B/P (MAP) Pulse Ox O2 Delivery O2 Flow Rate FiO2 07/28/18 13:31 98.1 98 22 134/86 97 Room Air Sp02 EP Interpretation: reviewed, normal General Appearance: well appearing, no apparent distress, alert, GCS 15, non- toxic Head: normocephalic, atraumatic Eyes: bilateral eye normal inspection, bilateral eye PERRL, bilateral eye EOMI ENT: hearing grossly normal, normal pharynx, no angioedema, normal voice, TMs + canals normal - Excessive cerumen bilaterally, uvula midline, moist mucus membranes Neck: full range of motion Respiratory: lungs clear, normal breath sounds, no rhonchi, no respiratory distress, no accessory muscle use, no wheezing, speaking full sentences Cardiovascular #1: regular rate, rhythm, no edema Musculoskeletal: back normal, digits/nails normal, gait/station normal, normal range of motion, non-tender Neurologic: alert, oriented x3, responsive, edge drummer III-XII nml as tested, motor strength/tone normal, SLR negative, sensory intact, cerebellar normal, normal gait, speech normal Psychiatric: mood/affect normal Skin: no rash Medical Decision Making PA Attestation Dr. Faulkner is my supervising Physician whom patient management has been discussed with. Diagnostic Impression: Primary Impression: Vertigo Additional Impression: Cerumen impaction ER Course Pt. presents to the ED c/o left earache and vertigo. Ddx considered but are not limited to cerumen impaction, otitis media, otitis externa, BPPV, labyrinthitis, Mnire's, temporal arteritis, infection, dehydration. Cranial nerves are intact as tested, no focal neuro deficits, signs and symptoms consistent with peripheral vertigo, no signs consistent with central vertigo, do not believe patient requires a CT head at this time. Vital signs: are WNL, pt. is afebrile ER COURSE: Moist mucus membranes, cap refill < 2seconds, normal skin turgor, low suspicion for dehydration. Excessive cerumen bilaterally, attempted ear lavage in the ER, patient states she attempted to use hydrogen peroxide at home, will discharge patient with Debrox, advised patient to follow-up with primary care provider and discuss referral to ENT specialist. Advised against Q-tip use. Daphnie maneuver performed in the ER, no improvement in symptoms. CBC and CMP unremarkable, no elevation in WBCs or LFTs, no elevation in ESR. Patient states symptoms improved following administration of meclizine, will discharge patient with Rx for meclizine and Zofran. ER precautions given. Follow-up with primary care provider to discuss further treatment referral at that time. Patient ambulatory in the ER independently without difficulty, no focal neuro deficits. DISCHARGE: At this time pt is stable for d/c to home. Patient is resting comfortably, in no acute distress, nontoxic appearing, talking without difficulty. Patient to take medications as instructed Will provide with patient care instructions and any necessary prescriptions. Care plan and follow-up instructions provided. Patient instructed to follow-up with primary care provider in 3 - 5 days. Patient questions asked and answered. Patient reports understanding and agreement to treatment plan. ER precautions given. Patient instructed to return to ER immediately for any new or worsening of symptoms including but not limited to increasing SOB, persistent fever, chest pain, intractable vomiting. - Please note that this Emergency Department Report was dictated using [employer] technology software, occasionally this can lead to erroneous entry secondary to interpretation by the dictation equipment. Labs Test 07/28/18 14:15 White Blood Count 6.6 K/UL (4.8-10.8) Red Blood Count 5.40 M/UL (4.20-5.40) Hemoglobin 13.6 G/DL (12.0-16.0) Hematocrit 42.5 % (37.0-47.0) Mean Corpuscular Volume 79 FL (80-99) Mean Corpuscular Hemoglobin 25.2 PG (27.0-31.0) Mean Corpuscular Hemoglobin Concent 31.9 G/DL (32.0-36.0) Red Cell Distribution Width 14.1 % (11.6-14.8) Platelet Count 320 K/UL (150-450) Mean Platelet Volume 6.2 FL (6.5-10.1) Neutrophils (%) (Auto) 39.3 % (45.0-75.0) Lymphocytes (%) (Auto) 46.0 % (20.0-45.0) Monocytes (%) (Auto) 10.5 % (1.0-10.0) Eosinophils (%) (Auto) 2.5 % (0.0-3.0) Basophils (%) (Auto) 1.8 % (0.0-2.0) Erythrocyte Sedimentation Rate 27 MM/HR (0-30) Sodium Level 138 MMOL/L (136-145) Potassium Level 4.0 MMOL/L (3.5-5.1) Chloride Level 106 MMOL/L (98-107) Carbon Dioxide Level 24 MMOL/L (21-32) Anion Gap 8 mmol/L (5-15) Blood Urea Nitrogen 12 mg/dL (7-18) Creatinine 0.9 MG/DL (0.55-1.30) Estimat Glomerular Filtration Rate > 60 mL/min (>60) Glucose Level 128 MG/DL (74-106) Calcium Level 10.0 MG/DL (8.5-10.1) Total Bilirubin 0.2 MG/DL (0.2-1.0) Aspartate Amino Transf (AST/SGOT) 14 U/L (15-37) Alanine Aminotransferase (ALT/SGPT) 26 U/L (12-78) Alkaline Phosphatase 114 U/L (46-116) Total Protein 8.5 G/DL (6.4-8.2) Albumin 3.6 G/DL (3.4-5.0) Globulin 4.9 g/dL Albumin/Globulin Ratio 0.7 (1.0-2.7) Last Vital Signs Date Time Temp Pulse Resp B/P (MAP) Pulse Ox O2 Delivery O2 Flow Rate FiO2 07/28/18 13:31 98.1 98 22 134/86 97 Room Air Status: improved Disposition: HOME, SELF-CARE Condition: Stable Scripts Carbamide Peroxide (DEBROX) 15 Ml Drops 10 DROP BOTH EARS TWICE A DAY for 4 Days, ML 0 Refills Prov: Enrique Palm 07/28/18 Meclizine Hcl* (VERTICALM*) 25 Mg Tablet 25 MG ORAL THREE TIMES A DAY, #25 TAB Prov: Enrique Palm 07/28/18 Patient Instructions: Cerumen Impaction, Vertigo, [id number] Additional Instructions: Followup with primary care provider in 3 -5 days. Discuss referral to ENT specialist and neurology specialist as needed. Do not use Q-tips. Take medications as directed. Patient questions asked and answered. ER precautions given, patient instructed to return to ER immediately for any new or worsening of symptoms. Enrique Palm Jul 28, 2018 14:08
[2018-07-28 14:35] LABS: BASOPHILS % (AUTO) 1.8 % (0.0-2.0); EOSINOPHILS % (AUTO) 2.5 % (0.0-3.0); HEMATOCRIT 42.5 % (37.0-47.0); HEMOGLOBIN 13.6 G/DL (12.0-16.0); MEAN CORPUSCULAR VOLUME 79 FL (80-99); MONOCYTES % (AUTO) 10.5 % (1.0-10.0); NEUTROPHILS % (AUTO) 39.3 % (45.0-75.0); PLATELET COUNT 320 K/UL (150-450); RED CELL DISTRIBUTION WIDTH 14.1 % (11.6-14.8); WHITE BLOOD COUNT 6.6 K/UL (4.8-10.8)
[2018-07-28 14:42] LABS: ANION GAP 8 mmol/L (5-15); BLOOD UREA NITROGEN 12 mg/dL (7-18); CARBON DIOXIDE 24 MMOL/L (21-32); CHLORIDE 106 MMOL/L (98-107); CREATININE 0.9 MG/DL (0.55-1.30); SODIUM 138 MMOL/L (136-145)
[2018-07-28 14:47] LABS: ALANINE AMINOTRANSFERASE 26 U/L (12-78); ALBUMIN 3.6 G/DL (3.4-5.0); ALBUMIN/GLOBULIN RATIO 0.7 (1.0-2.7); ALKALINE PHOSPHATASE 114 U/L (46-116); ASPARTATE AMINO TRANSFERASE 14 U/L (15-37); BILIRUBIN,TOTAL 0.2 MG/DL (0.2-1.0)
[2018-07-28 15:50] VITALS: BP 126/79
[2018-07-28] MEDS ORDERED: DEBROX15 M1 BOTH EARS (15:54)
[2018-07-28] MEDS ORDERED: VERTICALM25 MG ORAL (15:54)
[2018-07-28 15:57] VITALS: BP 126/79
== END 2018-07-28 16:00 | disposition home or self-care (01) ==
LOC: EMR 15:58
DX: R42 Dizziness and giddiness (principal); H61.23 Impacted cerumen, bilateral; E11.9 Type 2 diabetes mellitus without complications; I25.10 Atherosclerotic heart disease of native coronary artery without angina pectoris; K21.9 Gastro-esophageal reflux disease without esophagitis; G47.00 Insomnia, unspecified; Z86.73 Personal history of transient ischemic attack (TIA), and cerebral infarction without residual deficits
CPT/HCPCS: 36415; 80053; 85025; 85651; 99283

== ENCOUNTER 2018-09-20 11:56 | Emergency (ER) | payer MEDICAID ==
[~2018-09-20] VITALS: Ht 170.2 cm; Wt 118.8 kg
[~2018-09-20 11:56] MED LIST changes: +DEBROX15 M1 BOTH EARS; +VERTICALM25 MG ORAL
[2018-09-20] MEDS ORDERED: TURMERIC1 GM MC (12:06)
--- NOTE | 2018-09-20 12:10 | NUR ---
ED Nurse Note: patient walked into ED from home c/o bilateral pain in her left knees and hips x 5 days. Pt has hx of arthritis.
[2018-09-20 12:11] VITALS: BP 128/77
[2018-09-20] MEDS ORDERED: AMOXICILLIN500 MG ORAL (12:29)
[2018-09-20] MEDS ORDERED: LOSARTAN POTAS100 MG ORAL (12:29)
[2018-09-20] MEDS ORDERED: MAGNESIUM400 M2 PO (12:29)
[2018-09-20] MEDS ORDERED: AMBIEN5 MG ORAL (12:29)
[2018-09-20] MEDS ORDERED: MELATONIN 5 MG1 EAC1 ORAL (12:29)
[2018-09-20] MEDS ORDERED: Ketorolac 30mg Inj IM ONE (12:30)
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
[2018-09-20] MEDS ORDERED: NAPROXEN500 M1 ORAL (12:35)
[2018-09-20] MEDS ORDERED: TRAZODONE HCL50 MG ORAL (12:35)
[2018-09-20 12:48] VITALS: BP 128/77
--- NOTE | 2018-09-20 12:49 | NUR ---
ED Nurse Note: pt cleared to d/c per ER provider order, pt discharge instruction provided w/prescription paper, pt advised to follow up with pcp or return to ed if s/s worsen or new s/s develop, pt education done via discussion and hand out, patient verbalized understanding. ID wristband removed, pt vss, ambulatory w/ steady gait, respiration even and unlabored, airway intact, pt left with all belongings.
== END 2018-09-20 12:49 | disposition home or self-care (01) ==
LOC: EMR 12:24
DX: Z76.0 Encounter for issue of repeat prescription (principal); M25.562 Pain in left knee; M25.561 Pain in right knee; I25.10 Atherosclerotic heart disease of native coronary artery without angina pectoris; I10 Essential (primary) hypertension; K21.9 Gastro-esophageal reflux disease without esophagitis; G47.00 Insomnia, unspecified; Z86.73 Personal history of transient ischemic attack (TIA), and cerebral infarction without residual deficits; E11.9 Type 2 diabetes mellitus without complications; Z88.6 Allergy status to analgesic agent; Z88.5 Allergy status to narcotic agent
CPT/HCPCS: 96372; 99283; J1885

== ENCOUNTER 2018-10-25 21:59 | Emergency (ER) | payer MEDICAID ==
[~2018-10-25] VITALS: Ht 170.2 cm; Wt 117.9 kg
[~2018-10-25 21:59] MED LIST changes: +AMBIEN5 MG ORAL; +AMOXICILLIN500 MG ORAL; +LOSARTAN POTAS100 MG ORAL; +MAGNESIUM400 M2 PO; +MELATONIN 5 MG1 EAC1 ORAL; +NAPROXEN500 M1 ORAL; +TRAZODONE HCL50 MG ORAL; +TURMERIC1 GM MC
[2018-10-25 22:58] VITALS: BP 118/68
--- NOTE | 2018-10-25 22:59 | NUR ---
ED Nurse Note: Patient presents to ED c/o rash on right leg and lower back for 4 days. Patient reports 10/10 burning pain. Patient AOx4, VSS, ambulatory with steady gait, no s/s of acute distress noted at this time. Patient states she has tried several creams, all with no relief.
[2018-10-25] MEDS ORDERED: BENADRYL25 MG ORAL (23:56)
[2018-10-25] MEDS ORDERED: ANTI-ITCH28 G1 TP (23:56)
[2018-10-26 00:12] VITALS: BP 118/68
--- NOTE | 2018-10-26 00:12 | NUR ---
ER DISCHARGE NOTE: Patient is cleared to be discharged per ERMD, pt is aox4, on room air, with stable vital signs. pt was given dc and prescription instructions, pt was able to verbalize understanding, pt id band removed without complications. pt is able to ambulate with steady gait. pt took all belongings.
--- NOTE | 2018-10-26 04:22 | Emergency Room Report ---
History of Present Illness General Chief Complaint: Skin Rash/Abscess Source: Patient Present Illness HPI Patient is a 58-year-old female who presented after increased itchy skin rash. Patient reports of increased rash to her right thigh. She had noticed increased rash to multiple other areas. She denies any fever. She reports having some burning sensation to the area. She denies any fever. She reports having some areas to the right thigh as well as to her back of her neck. Allergies: Coded Allergies: ACETAMINOPHEN (Verified Allergy, Mild, nausea, 04/22/18) vomit HYDROCODONE BIT (Verified Allergy, Mild, nausea, 04/22/18) vomit Patient History Past Medical History: see triage record Last Menstrual Period: PEG Now: No Reviewed Nursing Documentation: PMH: Agreed; PSxH: Agreed Nursing Documentation-PMH Past Medical History: No History, Except For Hx Cardiac Problems: Yes - CAD Hx Hypertension: Yes Hx Pacemaker: No Hx Asthma: No - BRONCHITIS Hx Diabetes: Yes Hx Cancer: No Hx Gastrointestinal Problems: Yes - GERD Hx Dialysis: No Hx Neurological Problems: No - INSOMNIA, arthritis Hx Cerebrovascular Accident: Yes Hx Seizures: No Review of Systems All Other Systems: negative except mentioned in HPI Physical Exam Vital Signs Date Time Temp Pulse Resp B/P (MAP) Pulse Ox O2 Delivery O2 Flow Rate FiO2 10/25/18 22:41 98.2 103 16 118/68 96 Room Air General Appearance: well appearing, no apparent distress, alert, GCS 15 Head: normocephalic, atraumatic ENT: hearing grossly normal, normal voice Neck: full range of motion, supple Respiratory: lungs clear, normal breath sounds, no respiratory distress, speaking full sentences Cardiovascular #1: normal inspection Gastrointestinal: normal inspection Musculoskeletal: normal inspection, back normal, no calf tenderness Neurologic: normal inspection, alert, oriented x3, responsive, normal gait Psychiatric: mood/affect normal Skin: no rash Medical Decision Making Diagnostic Impression: Primary Impression: Skin rash Last Vital Signs Date Time Temp Pulse Resp B/P (MAP) Pulse Ox O2 Delivery O2 Flow Rate FiO2 10/26/18 00:12 98.2 103 16 118/68 96 Room Air Disposition: HOME, SELF-CARE Condition: Stable Scripts Diphenhydramine Hcl* (BENADRYL*) 25 Mg Capsule 25 MG ORAL Q6H PRN for Itching, #30 CAP Prov: Devonte Patel MD 10/25/18 Hydrocortisone 2% Cream (ANTI-ITCH 2% CREAM) Y Cr 28 GM TP DAILY, #30 GM Prov: Devonte Patel MD 10/25/18 Referrals: PATRICIA MARTINEZ,REFERRING (PCP) Patient Instructions: Devonte Hyde MD Oct 26, 2018 04:22
== END 2018-10-26 00:15 | disposition home or self-care (01) ==
LOC: EMR 23:40
DX: R21 Rash and other nonspecific skin eruption (principal); I10 Essential (primary) hypertension; E11.9 Type 2 diabetes mellitus without complications; K21.9 Gastro-esophageal reflux disease without esophagitis; Z86.73 Personal history of transient ischemic attack (TIA), and cerebral infarction without residual deficits
CPT/HCPCS: 99282

== ENCOUNTER 2019-01-15 19:06 | Emergency (ER) | payer MEDICAID ==
[~2019-01-15] VITALS: Ht 170.2 cm; Wt 118.8 kg
[~2019-01-15 19:06] MED LIST changes: +ANTI-ITCH28 G1 TP; +BENADRYL25 MG ORAL
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
[2019-01-15] MEDS ORDERED: Ketorolac 30mg Inj IM ONE (19:30)
[2019-01-15 19:56] LABS: APPEARANCE,URINE CLEAR; BILIRUBIN, URINE NEGATIVE (NEGATIVE); GLUCOSE, URINE (UA) NEGATIVE (NEGATIVE); KETONES,URINE 1+ (NEGATIVE); LEUKOCYTE ESTERASE ,URINE 1+ (NEGATIVE); NITRITE,URINE NEGATIVE (NEGATIVE); PH,URINE 5 (4.5-8.0); PROTEIN,URINE NEGATIVE (NEGATIVE); UROBILINOGEN,URINE NORMAL MG/DL (0.0-1.0)
[2019-01-15 19:57] LABS: COLOR,URINE YELLOW
[2019-01-15 20:15] VITALS: BP 139/79
--- NOTE | 2019-01-15 20:25 | Emergency Room Report ---
History of Present Illness General Chief Complaint: Pain Source: Patient Present Illness HPI 58 YO Female presents to the ED presents to the ED C/O 05/25 in severity pain and tenderness to the right lower back at the coccyx level, in addition to increased urinary frequency. Pt. denies dysuria, hematuria or polydipsia. Pt. with hx of HTN and DM. Denies abdominal pain. Nausea, Vomiting, Diarrhea or constipation. Pt. denies trauma or fall. She reports receiving pain shot in the past but it was months ago and she states she is "due" for another pain shot. Denies increased strenuous activity. pt. reports pain shoots down the right buttock intermittently. Denies numbness tingling or loss of sensation or gross motor movements of the extremities, incontinence of bowel or bladder. Denies hx of neoplastic disease. Denies inability to ambulate or weakness. Allergies: Coded Allergies: ACETAMINOPHEN (Verified Allergy, Mild, nausea, 04/22/18) vomit HYDROCODONE BIT (Verified Allergy, Mild, nausea, 04/22/18) vomit Patient History Past Medical History: see triage record Past Surgical History: none Pertinent Family History: none Last Menstrual Period: n/a Now: No Reviewed Nursing Documentation: PMH: Agreed; PSxH: Agreed Nursing Documentation-PMH Past Medical History: No History, Except For Hx Cardiac Problems: Yes - CAD Hx Hypertension: Yes Hx Pacemaker: No Hx Asthma: No - BRONCHITIS Hx Diabetes: Yes Hx Cancer: No Hx Gastrointestinal Problems: Yes - GERD Hx Dialysis: No Hx Neurological Problems: No - INSOMNIA, arthritis Hx Cerebrovascular Accident: Yes Hx Seizures: No Review of Systems All Other Systems: negative except mentioned in HPI Physical Exam Vital Signs Date Time Temp Pulse Resp B/P (MAP) Pulse Ox O2 Delivery O2 Flow Rate FiO2 01/15/19 19:10 97.9 101 18 134/82 (99) 95 Room Air Sp02 EP Interpretation: reviewed, normal General Appearance: no apparent distress, alert, GCS 15, non-toxic Head: normocephalic, atraumatic Eyes: bilateral eye normal inspection, bilateral eye PERRL ENT: hearing grossly normal, normal voice Neck: full range of motion Respiratory: lungs clear, normal breath sounds, speaking full sentences Cardiovascular #1: regular rate, rhythm Gastrointestinal: non tender, soft Genitourinary: normal inspection, no CVA tenderness Musculoskeletal: back normal - no midline spinous process step-offs, deformities or tenderness, gait/station normal, normal range of motion, tender - Mild Tenderness to palpation to right upper buttock/ gluteal/paraspinal muscles of the lower back without midline tenderness. Neurologic: alert, oriented x3, responsive, motor strength/tone normal, sensory intact, normal gait, speech normal, grossly normal Psychiatric: judgement/insight normal Skin: normal color, no rash, warm/dry, well hydrated Medical Decision Making PA Attestation Dr. Faulkner is my supervising Physician whom patient management has been discussed with. Diagnostic Impression: Primary Impression: Back pain Qualified Codes: M54.41 - Lumbago with sciatica, right side ER Course 58 YO Female presents to the ED presents to the ED C/O 05/25 in severity pain and tenderness to the right lower back at the coccyx level, in addition to increased urinary frequency. Pt. denies dysuria, hematuria or polydipsia. Pt. with hx of HTN and DM. Denies abdominal pain. Nausea, Vomiting, Diarrhea or constipation. Pt. denies trauma or fall. She reports receiving pain shot in the past but it was months ago and she states she is "due" for another pain shot. Denies increased strenuous activity. pt. reports pain shoots down the right buttock intermittently. Denies numbness tingling or loss of sensation or gross motor movements of the extremities, incontinence of bowel or bladder. Denies hx of neoplastic disease. Denies inability to ambulate or weakness. Ddx considered: epidural abscess, fracture, sprain/strain, meningitis, spinal chord injury, sciatica, cauda equina, Pyelonephritis, renal calculi just to name a few. Vital signs reviewed and are WNL during ED visit. Pt. is afebrile with no signs of infection No new symptoms, and denies recent trauma. No saddle anesthesia noted, Pt. denies incontinence Neurovascular is intact * Mild Tenderness to palpation to right upper buttock/ gluteal/paraspinal muscles of the lower back without midline tenderness. ORDERS: -UA: unremarkable INTERVENTIONS: - Lidoderm TP -Tramadol PO D/W Pt. that for further pain management is it recommended to consult PCP or a Chronic Pain management doctor. A provider who can safely prescribe controlled substances with close follow up. DISCHARGE: At this time pt. is stable for d/c to home. Will provide printed patient care instructions, and any necessary prescriptions. Care plan and follow up instructions have been discussed with the patient prior to discharge. Labs Test 01/15/19 19:14 Urine Color Yellow Urine Appearance Clear Urine pH 5 (4.5-8.0) Urine Specific [place] 1.025 (1.005-1.035) Urine Protein Negative (NEGATIVE) Urine Glucose (UA) Negative (NEGATIVE) Urine Ketones 1+ (NEGATIVE) Urine Blood Negative (NEGATIVE) Urine Nitrite Negative (NEGATIVE) Urine Bilirubin Negative (NEGATIVE) Urine Urobilinogen Normal MG/DL (0.0-1.0) Urine Leukocyte Esterase 1+ (NEGATIVE) Urine RBC 0-2 /HPF (0 - 2) Urine WBC 2-4 /HPF (0 - 2) Urine Squamous Epithelial Cells Few /LPF (NONE/OCC) Urine Bacteria Few /HPF (NONE) Last Vital Signs Date Time Temp Pulse Resp B/P (MAP) Pulse Ox O2 Delivery O2 Flow Rate FiO2 01/15/19 19:10 97.9 101 18 134/82 (99) 95 Room Air Status: improved Disposition: HOME, SELF-CARE Condition: Stable Scripts Tramadol Hcl* (ULTRAM*) 50 Mg Tablet 50 MG ORAL Q8HR PRN for For Pain, #10 TAB 0 Refills Prov: Jocelin Goff 01/15/19 Lidocaine (Lidoderm) 1 Each Adh..patch 1 PATCH TOPIC DAILY, #30 PATCH 0 Refills Patch(es) may remain in place for up to 12 hours in any 24-hour period. Prov: Jocelin Goff 01/15/19 Referrals: PATRICIA MARTINEZ,REFERRING (PCP) Patient Instructions: Back Pain, Adult, [id number] Additional Instructions: Take medications as directed. Follow up with a Primary Care Provider in 3-5 days, even if your symptoms have resolved. --Please review list of primary care clinics, if you do not already have a primary care provider Return sooner to ED if new symptoms occur, or current symptoms become worse. Do not drink alcohol, drive, or operate heavy machinery while taking Robaxin ( Muscle Relaxers) as this may cause drowsiness. - Please note that this Emergency Department Report was dictated using [employer] wood model maker technology software, occasionally this can lead to erroneous entry secondary to interpretation by the dictation equipment. Jocelin Goff Jan 15, 2019 20:25
[2019-01-15] MEDS ORDERED: TRAMADOL HCL50 MG ORAL (20:26)
[2019-01-15] MEDS ORDERED: LIDODERM700 M1 TOPIC (20:26)
--- NOTE | 2019-01-15 20:30 | NUR ---
ED Nurse Note: MEDS GIVEN FOR PAIN EFFECTIVE, PAIN LEVEL DECREASED TO 2/10, PT IS BEING D/C TO HOME, AWAKE AND ALERT, AMBULATING WELL, NO CP, NO SOB, PT GIVEN F/U INFO AND AFTER CARE INSTRUCTIONS, ALSO RE-VERBALIZES PROPER MEDICATION ADMINISTRATION, NAD NOTED DURING D/C TO HOME.
[2019-01-15 20:37] VITALS: BP 139/79
== END 2019-01-15 20:38 | disposition home or self-care (01) ==
LOC: EMR 19:25
DX: M54.41 Lumbago with sciatica, right side (principal); E11.9 Type 2 diabetes mellitus without complications; Z88.6 Allergy status to analgesic agent; I11.9 Hypertensive heart disease without heart failure; K21.9 Gastro-esophageal reflux disease without esophagitis; Z86.73 Personal history of transient ischemic attack (TIA), and cerebral infarction without residual deficits; M19.90 Unspecified osteoarthritis, unspecified site
CPT/HCPCS: 81003; 96372; 99283

== ENCOUNTER 2019-03-27 11:53 | Emergency (ER) | payer MEDICAID ==
[~2019-03-27] VITALS: Ht 170.2 cm; Wt 114.3 kg
[~2019-03-27 11:53] MED LIST changes: +LIDODERM700 M1 TOPIC
--- NOTE | 2019-03-27 12:04 | NUR ---
ED Nurse Note: Pt came in from home due to hemorroid x 2 weeks. Pt stated she " cant sleep at night and need help". No active bleeding noted. Pain 8/10 burning. AOx4, VSS ann. Will cont to monitor.
--- NOTE | 2019-03-27 12:23 | Emergency Room Report ---
History of Present Illness General Chief Complaint: Pain Source: Patient Present Illness HPI 59-year-old female with history of insomnia, diabetes both controlled. Here complaining of pain and swelling in the rectal area with an external hemorrhoid with minimal bleeding x1 week. Patient reports being constipated. Denies any pus drainage or active bleeding from the rectum. Rating the pain 10 out of 10 without radiation. Denies fever and chills, abdominal pain, nausea vomiting, shortness of breath, and other associated symptoms. Has not taken medication for symptom relief. Patient is also requesting medication refill on her albuterol as well as Ambien as she reports that her primary care is on vacation. Patient denies any suicidal homicidal ideation. Cures was done on patient patient currently has an active prescription for hydrocodone however does not have one for zolpidem. I told patient that I can only write for a 3- day supply and she needs to follow-up with her primary care provider as this is a controlled substance and she has been on this medication for years and this is considered a chronic issue. Patient agrees with the course of treatment. Allergies: Coded Allergies: ACETAMINOPHEN (Verified Allergy, Mild, nausea, 04/22/18) vomit HYDROCODONE BIT (Verified Allergy, Mild, nausea, 04/22/18) vomit Patient History Past Medical History: see triage record Past Surgical History: unable to obtain Pertinent Family History: none Now: No Immunizations: UTD Reviewed Nursing Documentation: PMH: Agreed; PSxH: Agreed Nursing Documentation-PMH Past Medical History: No History, Except For Hx Cardiac Problems: Yes - CAD Hx Hypertension: Yes Hx Pacemaker: No Hx Asthma: No - BRONCHITIS Hx Diabetes: Yes Hx Cancer: No Hx Gastrointestinal Problems: Yes - GERD Hx Dialysis: No Hx Neurological Problems: No - INSOMNIA, arthritis Hx Cerebrovascular Accident: Yes Hx Seizures: No Review of Systems All Other Systems: negative except mentioned in HPI Physical Exam Vital Signs Date Time Temp Pulse Resp B/P (MAP) Pulse Ox O2 Delivery O2 Flow Rate FiO2 03/27/19 11:56 98.2 96 16 125/65 (85) 96 Room Air Sp02 EP Interpretation: reviewed, normal General Appearance: normal inspection, well appearing Head: normocephalic Eyes: bilateral eye normal inspection, bilateral eye PERRL ENT: normal ENT inspection Neck: normal inspection, full range of motion, supple Respiratory: normal inspection, chest non-tender, lungs clear, no rhonchi, no wheezing Cardiovascular #1: normal inspection, normal peripheral pulses, regular rate, rhythm, no edema, no murmur, normal capillary refill Gastrointestinal: normal inspection, non tender, soft Rectal: hemorrhoids - external Musculoskeletal: normal inspection, back normal Neurologic: normal inspection, alert, oriented x3, responsive Psychiatric: normal inspection, judgement/insight normal, memory normal, mood/ affect normal, no suicidal/homicidal ideation, no delusions Skin: no rash Lymphatic: normal inspection, no adenopathy Medical Decision Making PA Attestation All my diagnosis and treatment plans were reviewed ad discussed with my supervising physician Dr. Dyson Diagnostic Impression: Primary Impression: External hemorrhoid, bleeding Additional Impressions: Medication refill Insomnia Acute asthma ER Course 59-year-old female with history of insomnia, diabetes both controlled. Here complaining of pain and swelling in the rectal area with an external hemorrhoid with minimal bleeding x1 week. Patient reports being constipated. Denies any pus drainage or active bleeding from the rectum. Rating the pain 10 out of 10 without radiation. Denies fever and chills, abdominal pain, nausea vomiting, shortness of breath, and other associated symptoms. Has not taken medication for symptom relief. Patient is also requesting medication refill on her albuterol as well as Ambien as she reports that her primary care is on vacation. Patient denies any suicidal homicidal ideation. Cures was done on patient patient currently has an active prescription for hydrocodone however does not have one for zolpidem. I told patient that I can only write for a 3- day supply and she needs to follow-up with her primary care provider as this is a controlled substance and she has been on this medication for years and this is considered a chronic issue. Patient agrees with the course of treatment. Ddx considered but are not limited to: generalized anxiety disorder, panic attack, depression with psycotic featurs, bipolar disorder, drug overdose, insomnia, external hemorrhoids bleeding, external hemorrhoids nonbleeding, internal hemorrhoids Vital signs: are WNL, pt. is afebrile H&PE are most consistent with: External hemorrhoids with minimal bleeding, insomnia, acute asthma, medication refill for insomnia and asthma ORDERS: Anusol rectal cream, ibuprofen, Ambien only for 3 nights supply, albuterol inhaler ED INTERVENTIONS: None required at this time. DISCHARGE: At this time pt. is stable for d/c to home. Will provide printed patient care instructions, and any necessary prescriptions. Care plan and follow up instructions have been discussed with the patient prior to discharge. No oral steroids can be prescribed due to patient diabetes and patient not being compliant with her medication. Patient to follow-up with her primary care provider for referral to multicraft operator. Also referred to primary care for further medication refill of [place]ien. Patient understands and agrees with the above treatment. Last Vital Signs Date Time Temp Pulse Resp B/P (MAP) Pulse Ox O2 Delivery O2 Flow Rate FiO2 03/27/19 11:56 98.2 96 16 125/65 (85) 96 Room Air Disposition: HOME, SELF-CARE Condition: Stable Scripts Zolpidem Tartrate* (ZOLPIDEM TARTRATE*) 10 Mg Tablet 10 MG ORAL BEDTIME PRN for Insomnia for 3 Days, #3 TAB 0 Refills Prov: Viola Danielle 03/27/19 Albuterol Sulfate (VENTOLIN HFA) 18 Gm Hfa.aer.ad 2 PUFFS INH EVERY 6 HOURS, #18 GM 0 Refills Prov: Viola Danielle 03/27/19 Hydrocortisone Hc 2.5% Cream (ANUSOL-HC 2.5% CREAM) Y Cr 2 GM RC TID, #28 GM Prov: Viola Danielle 03/27/19 Referrals: NON PHYSICIAN (PCP) Patient Instructions: Asthma, Adult, [id number], Hemorrhoids, Insomnia Additional Instructions: take medications as directed. follow up with primary Dr for more refills Viola Danielle Mar 27, 2019 12:23
[2019-03-27] MEDS ORDERED: ANUSOL-HC30 GM RC (12:29)
[2019-03-27] MEDS ORDERED: ZOLPIDEM TARTRA10 MG ORAL (12:29)
[2019-03-27] MEDS ORDERED: VENTOLIN HFA18 GM INH (12:29)
[2019-03-27 12:32] VITALS: BP 125/71
[2019-03-27 12:33] VITALS: BP 125/71
--- NOTE | 2019-03-27 12:33 | NUR ---
ER DISCHARGE NOTE: Patient is cleared to be discharged per ERMD, pt is aox4, on room air, with stable vital signs. pt was given dc and prescription instructions, pt was able to verbalize understanding, pt id band removed. pt is able to ambulate with steady gait. pt took all belongings.
== END 2019-03-27 12:33 | disposition home or self-care (01) ==
LOC: EMR 12:12
DX: K64.4 Residual hemorrhoidal skin tags (principal); G47.00 Insomnia, unspecified; J45.909 Unspecified asthma, uncomplicated; I10 Essential (primary) hypertension; K21.9 Gastro-esophageal reflux disease without esophagitis; E11.9 Type 2 diabetes mellitus without complications; I11.9 Hypertensive heart disease without heart failure; I25.10 Atherosclerotic heart disease of native coronary artery without angina pectoris; Z86.73 Personal history of transient ischemic attack (TIA), and cerebral infarction without residual deficits; M19.90 Unspecified osteoarthritis, unspecified site; Z88.6 Allergy status to analgesic agent
CPT/HCPCS: 99282